=== PATIENT | female | born 1965 | race Caucasian/White ===

== ENCOUNTER 2020-07-23 21:00 | Inpatient (IN) | payer OTHER ==
[2020-07-23 22:27] LABS: #Monocytes 0.4 10x3/uL (0.0-1.1); #Neutrophils 2.8 10x3/uL (1.5-8.4); %Basophils 0.2 % (0.0-2.0); %Eosinophils 0.5 % (0.0-6.0); %Lymphocytes 23.8 % (18.0-47.0); %Monocytes 9.5 % (0.0-10.0); %Neutrophils 65.5 % (40.0-75.0); Hemoglobin 10.2 g/dL (12.0-15.5); Mean Corpuscular HGB CONC 33.7 g/dL (32.0-36.0); Mean Corpuscular Hemoglobin 31.6 pg (27.0-33.0); Mean Corpuscular Volume 93.8 fl (81.6-98.3); Platelet Count 234 10x3/uL (150-450); RBC Distribution Width 16.4 % (11.5-14.5); Red Blood Cell (RBC) Count 3.23 10x6/uL (3.90-5.03); White Blood Cell (WBC) Count 4.3 10x3/uL (3.5-10.5)
[2020-07-23] MEDS ORDERED: Ondansetron PF 4 MG/2 ML Vial ONE (22:31)
[2020-07-23 22:43] LABS: ALT (SGPT) 18 U/L (8-55); AST (SGOT) 52 U/L (5-34); Albumin 2.5 g/dL (3.5-5.0); Alkaline Phosphatase 73 U/L (40-110); Anion Gap 9 mmol/L (10-20); BUN (Urea Nitrogen) 9 mg/dL (9.8-20.1); Bilirubin, Total 0.3 mg/dL (0.2-1.2); Calc. Creatinine Clearance 0 mL/min (70-130); Calcium 8.1 mg/dL (7.8-10.44); Carbon Dioxide 29 mmol/L (22-29); Chloride 99 mmol/L (98-107); Globulin 2.9 g/dL (2.4-3.5); Glucose 102 mg/dL (70-105); Lipase 7 U/L (8-78); Protein, Total 5.4 g/dL (6.0-8.3); Sodium 134 mmol/L (136-145)
[2020-07-23 22:48] LABS: Potassium 2.8 mmol/L (3.5-5.1)
[2020-07-23 22:57] LABS: Bilirubin Neg (Negative); Blood, Urine Negative (Negative); Glucose, Urine (Dipstick) Normal (Negative); Ketone, Urine Negative (Negative); Leukocyte 25 (Negative); Nitrite Negative (Negative); Protein, Urine (Dipstick) 15 mg/dl (Neg-Trace); Specific Gravity, Urine 1.015 (1.002-1.036)
[2020-07-23 22:59] LABS: Clarity Hazy (Clear)
[2020-07-23 23:08] LABS: Bacteria/HPF 2+ HPF (None Seen); Calcium Oxalate Crystals Rare HPF (None Seen); Mucous/LPF 2+ LPF (<2+); RBC/HPF None Seen HPF (0-3); WBC/HPF 0-3 HPF (0-3)
[2020-07-23] MEDS ORDERED: Potassium Chloride 20 MEQ TAB ONE (23:11)
[2020-07-23] MEDS ORDERED: Morphine 4 MG/ML VIAL ONE (23:16)
[2020-07-23] MEDS ORDERED: D5 0.9% NS w/ 20 mEq KCl 1,000 ML IV SCH (23:45)
[2020-07-24] MEDS ORDERED: Ondansetron PF 4 MG/2 ML Vial IVP PRN (01:09)
[2020-07-24] MEDS ORDERED: Ondansetron ODT 4 MG TAB PO PRN (01:09)
[2020-07-24] MEDS ORDERED: Sodium Chloride 0.9% 500 ML IV SCH (04:45)
[2020-07-24] MEDS ORDERED: Magnesium Sulfate 1 GM/2 ML VIAL IM SCH (05:15)
[2020-07-24] MEDS ORDERED: Morphine 2 MG/ML VIAL SLOW IVP SCH (06:15)
[2020-07-24 06:39] VITALS: BMI 21.9
[2020-07-24] MEDS: D5 0.9% NS w/ 20 mEq KCl 1,000 ML IV SCH ×3 (06:45→21:00)
[2020-07-24 07:11] LABS: Anion Gap 8 mmol/L (10-20); BUN (Urea Nitrogen) 6 mg/dL (9.8-20.1); Calc. Creatinine Clearance 121 mL/min (70-130); Calcium 7.7 mg/dL (7.8-10.44); Carbon Dioxide 27 mmol/L (22-29); Chloride 106 mmol/L (98-107); Glucose 93 mg/dL (70-105); Potassium 3.4 mmol/L (3.5-5.1); Sodium 138 mmol/L (136-145)
[2020-07-24 07:39] LABS: PTT 30.2 sec (22.0-33.0)
[2020-07-24 07:47] LABS: Band 2 % (5-11); Eosinophils 1 % (0-10); Hemoglobin 9.4 g/dL (12.0-15.5); Lymphocytes 25 % (21-51); MDiff Complete? YES; Mean Corpuscular Hemoglobin 31.3 pg (27.0-33.0); Mean Platelet Volume 11.4 fl (7.4-10.4); Monocytes 8 % (0-10); Neutrophil 64 % (42-75); Nucleated RBC 1 % (0); Platelet Count 223 10x3/uL (150-450); RBC Distribution Width 16.9 % (11.5-14.5); White Blood Cell (WBC) Count 3.4 10x3/uL (3.5-10.5)
[2020-07-24] MEDS ORDERED: Potassium Chloride 20 MEQ TAB PO SCH ×2 (08:00→23:00)
[2020-07-24] MEDS: Pancrelipase DR 12,000 1 CAP PO SCH ×3 (08:44→16:32)
[2020-07-24] MEDS: Enoxaparin Sodium 60 MG/0.6 ML SYRINGE SC SCH ×2 (08:45→22:53)
[2020-07-24 13:36] LABS: SARS-CoV-2 PCR by NAA Not Detected (NotDetected)
[2020-07-24] MEDS: HYDROcodone/Acetaminophen 7.5/325 mg Tablet PO PRN (17:01)
[2020-07-24] MEDS: metroNIDAZOLE 500 MG in Premix Bag 1 BAG IVPB SCH (17:02)
[2020-07-24] MEDS: Vancomycin HCl 25 MG/ML Oral PO SCH ×2 (17:02→23:17)
[2020-07-24] MEDS ORDERED: Mag-Al Plus 1200 MG/1200 MG/120 MG/30 ML UDCUP PO PRN (21:34)
[2020-07-24] MEDS ORDERED: metroNIDAZOLE 500 MG in Premix Bag 1 BAG IVPB SCH (22:00)
[2020-07-24] MEDS ORDERED: Melatonin 3 MG TAB PO PRN (22:51)
[2020-07-25] MEDS: metroNIDAZOLE 500 MG in Premix Bag 1 BAG IVPB SCH ×3 (01:54→17:13)
[2020-07-25] MEDS: D5 0.9% NS w/ 20 mEq KCl 1,000 ML IV SCH ×2 (03:56→13:50)
[2020-07-25] MEDS: Vancomycin HCl 25 MG/ML Oral PO SCH ×4 (07:15→22:31)
[2020-07-25 09:41] LABS: #Monocytes 0.5 10x3/uL (0.0-1.1); #Neutrophils 2.5 10x3/uL (1.5-8.4); %Basophils 0.2 % (0.0-2.0); %Eosinophils 0.7 % (0.0-6.0); %Lymphocytes 27.9 % (18.0-47.0); %Monocytes 12.2 % (0.0-10.0); %Neutrophils 58.5 % (40.0-75.0); Hemoglobin 11.8 g/dL (12.0-15.5); Mean Corpuscular HGB CONC 32.6 g/dL (32.0-36.0); Mean Corpuscular Volume 98.1 fl (81.6-98.3); Platelet Count 287 10x3/uL (150-450); RBC Distribution Width 17.2 % (11.5-14.5); Red Blood Cell (RBC) Count 3.69 10x6/uL (3.90-5.03); White Blood Cell (WBC) Count 4.3 10x3/uL (3.5-10.5)
[2020-07-25] MEDS: Enoxaparin Sodium 60 MG/0.6 ML SYRINGE SC SCH ×2 (10:05→22:31)
[2020-07-25] MEDS: Pancrelipase DR 12,000 1 CAP PO SCH ×3 (10:53→17:13)
[2020-07-25 11:48] LABS: Anion Gap 15 mmol/L (10-20)
[2020-07-25 11:58] LABS: BUN (Urea Nitrogen) 5 mg/dL (9.8-20.1); Calc. Creatinine Clearance 112 mL/min (70-130); Calcium 8.2 mg/dL (7.8-10.44); Carbon Dioxide 16 mmol/L (22-29); Chloride 108 mmol/L (98-107); Glucose 138 mg/dL (70-105); Potassium 6.2 mmol/L (3.5-5.1); Sodium 133 mmol/L (136-145)
[2020-07-25] MEDS: HYDROcodone/Acetaminophen 7.5/325 mg Tablet PO PRN (12:21)
[2020-07-25] MEDS ORDERED: Sodium Chloride 0.9% 1,000 ML IV SCH (17:30)
[2020-07-25 21:47] LABS: Potassium 4.2 mmol/L (3.5-5.1)
[2020-07-26] MEDS: metroNIDAZOLE 500 MG in Premix Bag 1 BAG IVPB SCH ×2 (00:38→08:31)
[2020-07-26] MEDS: Vancomycin HCl 25 MG/ML Oral PO SCH ×2 (05:39→11:50)
[2020-07-26] MEDS: Enoxaparin Sodium 60 MG/0.6 ML SYRINGE SC SCH (08:31)
[2020-07-26] MEDS: Pancrelipase DR 12,000 1 CAP PO SCH (08:32)
[2020-07-26 08:38] VITALS: BP 99/67; TEMP 98.2
[2020-07-26 08:40] LABS: #Monocytes 0.5 10x3/uL (0.0-1.1); #Neutrophils 1.4 10x3/uL (1.5-8.4); %Eosinophils 1.3 % (0.0-6.0); %Lymphocytes 37.9 % (18.0-47.0); %Neutrophils 45.2 % (40.0-75.0); Hemoglobin 10.9 g/dL (12.0-15.5); Mean Corpuscular HGB CONC 32.9 g/dL (32.0-36.0); Mean Corpuscular Hemoglobin 31.7 pg (27.0-33.0); Mean Corpuscular Volume 96.2 fl (81.6-98.3); Mean Platelet Volume 11.3 fl (7.4-10.4); Platelet Count 279 10x3/uL (150-450); RBC Distribution Width 17.2 % (11.5-14.5); Red Blood Cell (RBC) Count 3.44 10x6/uL (3.90-5.03); White Blood Cell (WBC) Count 3.1 10x3/uL (3.5-10.5)
[2020-07-26 08:55] LABS: ALT (SGPT) 14 U/L (8-55); AST (SGOT) 25 U/L (5-34); Albumin 2.4 g/dL (3.5-5.0); Alkaline Phosphatase 64 U/L (40-110); Anion Gap 11 mmol/L (10-20); BUN (Urea Nitrogen) 4 mg/dL (9.8-20.1); Bilirubin, Total 0.2 mg/dL (0.2-1.2); Calc. Creatinine Clearance 106 mL/min (70-130); Calcium 8.3 mg/dL (7.8-10.44); Carbon Dioxide 24 mmol/L (22-29); Chloride 105 mmol/L (98-107); Globulin 2.8 g/dL (2.4-3.5); Glucose 96 mg/dL (70-105); Potassium 4.2 mmol/L (3.5-5.1); Protein, Total 5.2 g/dL (6.0-8.3); Sodium 136 mmol/L (136-145)
== END 2020-07-26 11:55 | disposition home or self-care (01) | DRG 372 ==
LOC: CSHERS 21:00 → CSHTELE 07-24 00:55 → OBSVTOIN 07-25 15:00
PROVIDERS: ADMIT Family Medicine; ATTEND Family Medicine
DX: A04.72 Enterocolitis due to Clostridium difficile, not specified as recurrent (principal); C25.9 Malignant neoplasm of pancreas, unspecified; D84.9 Immunodeficiency, unspecified; E87.1 Hypo-osmolality and hyponatremia; E46 Unspecified protein-calorie malnutrition; E86.0 Dehydration; E87.6 Hypokalemia; Z20.822 Contact with and (suspected) exposure to COVID-19; Z88.0 Allergy status to penicillin; Z88.2 Allergy status to sulfonamides; Z86.711 Personal history of pulmonary embolism; Z79.01 Long term (current) use of anticoagulants; K64.9 Unspecified hemorrhoids; E86.1 Hypovolemia; E87.5 Hyperkalemia; Z68.21 Body mass index [BMI] 21.0-21.9, adult
CPT/HCPCS: 36416; 80048; 80053; 81003; 81015; 82274; 83605; 83630; 83690; 83735; 85007; 85025; 85027; 85610; 85730; 87045; 87046; 87077; 87186; 87324; 87427; 87449; 87635; 96365; 96372; 96374; 96375; 96376; G0378; J0500; J1642; J1650; J2270; J2405; J3475; J3480; U0003; U0005

== ENCOUNTER 2020-08-02 19:21 | Inpatient (IN) | payer OTHER ==
[2020-08-02] MEDS ORDERED: Acetaminophen 500 MG TAB ONE (19:57)
[2020-08-02] MEDS ORDERED: Morphine 4 MG/ML VIAL ONE (21:20)
[2020-08-02] MEDS ORDERED: Ondansetron PF 4 MG/2 ML Vial IVP PRN (22:05)
[2020-08-02] MEDS ORDERED: Morphine 2 MG/ML VIAL SLOW IVP PRN (22:39)
[2020-08-02] MEDS ORDERED: Vancomycin HCl 25 MG/ML Oral PO SCH (22:45)
[2020-08-03 03:58] LABS: Carbon Dioxide 26 mmol/L (22-29); Chloride 96 mmol/L (98-107); Potassium 3.7 mmol/L (3.5-5.1); Sodium 133 mmol/L (136-145)
[2020-08-03 03:59] LABS: Albumin 3.1 g/dL (3.5-5.0); BUN (Urea Nitrogen) 5 mg/dL (9.8-20.1); Bilirubin, Total 0.5 mg/dL (0.2-1.2); Calc. Creatinine Clearance 0 mL/min (70-130); Calcium 9.4 mg/dL (7.8-10.44); Globulin 3.5 g/dL (2.4-3.5); Glucose 113 mg/dL (70-105); Protein, Total 6.6 g/dL (6.0-8.3)
[2020-08-03 04:00] LABS: ALT (SGPT) 22 U/L (8-55); AST (SGOT) 43 U/L (5-34); Alkaline Phosphatase 107 U/L (40-110)
[2020-08-03 04:01] LABS: Lipase Less than 4 U/L (8-78); Magnesium 2.1 mg/dL (1.6-2.6)
[2020-08-03 04:03] LABS: Anion Gap 15 mmol/L (10-20)
[2020-08-03 04:54] LABS: ALT (SGPT) 16 U/L (8-55); AST (SGOT) 34 U/L (5-34); Albumin 2.6 g/dL (3.5-5.0); Alkaline Phosphatase 95 U/L (40-110); Anion Gap 13 mmol/L (10-20); BUN (Urea Nitrogen) 5 mg/dL (9.8-20.1); Bilirubin, Total 0.4 mg/dL (0.2-1.2); Calc. Creatinine Clearance 0 mL/min (70-130); Carbon Dioxide 23 mmol/L (22-29); Chloride 100 mmol/L (98-107); Globulin 2.9 g/dL (2.4-3.5); Glucose 89 mg/dL (70-105); Potassium 3.7 mmol/L (3.5-5.1); Protein, Total 5.5 g/dL (6.0-8.3); Sodium 132 mmol/L (136-145)
[2020-08-03 05:00] LABS: #Eosinphils 0.1 10x3/uL (0.0-0.5); #Monocytes 0.8 10x3/uL (0.0-1.1); #Neutrophils 3.6 10x3/uL (1.5-8.4); %Basophils 0.7 % (0.0-2.0); %Eosinophils 2.5 % (0.0-6.0); %Lymphocytes 18.5 % (18.0-47.0); %Monocytes 13.6 % (0.0-10.0); %Neutrophils 64.3 % (40.0-75.0); Hemoglobin 11.5 g/dL (12.0-15.5); Mean Corpuscular HGB CONC 33.3 g/dL (32.0-36.0); Mean Corpuscular Hemoglobin 32.1 pg (27.0-33.0); Mean Corpuscular Volume 96.4 fl (81.6-98.3); Mean Platelet Volume 10.3 fl (7.4-10.4); Platelet Count 386 10x3/uL (150-450); RBC Distribution Width 18.4 % (11.5-14.5); Red Blood Cell (RBC) Count 3.58 10x6/uL (3.90-5.03); White Blood Cell (WBC) Count 5.6 10x3/uL (3.5-10.5)
[2020-08-03] MEDS ORDERED: Enoxaparin Sodium 60 MG/0.6 ML SYRINGE SC SCH (05:45)
[2020-08-03] MEDS ORDERED: metroNIDAZOLE 500 MG/100 ML BAG ONE (06:01)
[2020-08-03] MEDS: NS 0.9% w/ 20 MEQ KCL 1,000 ML/1,000 ML BAG IV SCH ×3 (06:09→19:47)
[2020-08-03] MEDS: metroNIDAZOLE 500 MG in Premix Bag 1 BAG IVPB SCH ×3 (06:10→18:29)
[2020-08-03 08:43] LABS: #Eosinphils 0.1 10x3/uL (0.0-0.5); #Monocytes 0.8 10x3/uL (0.0-1.1); #Neutrophils 3.7 10x3/uL (1.5-8.4); %Basophils 0.5 % (0.0-2.0); %Eosinophils 1.3 % (0.0-6.0); %Lymphocytes 23.8 % (18.0-47.0); %Monocytes 13.5 % (0.0-10.0); %Neutrophils 60.7 % (40.0-75.0); Hemoglobin 12.8 g/dL (12.0-15.5); Mean Corpuscular HGB CONC 33.9 g/dL (32.0-36.0); Mean Corpuscular Hemoglobin 32.3 pg (27.0-33.0); Mean Corpuscular Volume 95.5 fl (81.6-98.3); Platelet Count 491 10x3/uL (150-450); RBC Distribution Width 18.2 % (11.5-14.5); Red Blood Cell (RBC) Count 3.96 10x6/uL (3.90-5.03); White Blood Cell (WBC) Count 6.1 10x3/uL (3.5-10.5)
[2020-08-03] MEDS ORDERED: Prevnar 13-Val Conj/PF 0.5 ML SYRINGE IM ONE (09:00)
[2020-08-03] MEDS ORDERED: Vancomycin HCl 25 MG/ML Oral PO SCH (09:00)
[2020-08-03] MEDS: Famotidine/PF 20 mg/2ml Vial SLOW IVP SCH ×2 (10:20→19:46)
[2020-08-03] MEDS: Morphine 4 MG/ML VIAL SLOW IVP PRN (19:45)
[2020-08-03] MEDS: Enoxaparin Sodium 60 MG/0.6 ML SYRINGE SC SCH (19:47)
[2020-08-03] MEDS ORDERED: Fentanyl 100 MCG/2 ML VIAL SLOW IVP SCH (23:45)
[2020-08-04] MEDS: metroNIDAZOLE 500 MG in Premix Bag 1 BAG IVPB SCH ×3 (02:07→17:54)
[2020-08-04] MEDS: Morphine 4 MG/ML VIAL SLOW IVP PRN ×3 (03:35→21:41)
[2020-08-04 04:13] LABS: #Eosinphils 0.1 10x3/uL (0.0-0.5); #Monocytes 0.5 10x3/uL (0.0-1.1); #Neutrophils 2.6 10x3/uL (1.5-8.4); %Basophils 0.9 % (0.0-2.0); %Lymphocytes 25.9 % (18.0-47.0); %Monocytes 12.2 % (0.0-10.0); %Neutrophils 58.8 % (40.0-75.0); Hemoglobin 11.3 g/dL (12.0-15.5); Mean Corpuscular HGB CONC 32.7 g/dL (32.0-36.0); Mean Platelet Volume 10.4 fl (7.4-10.4); Platelet Count 393 10x3/uL (150-450); RBC Distribution Width 18.6 % (11.5-14.5); Red Blood Cell (RBC) Count 3.53 10x6/uL (3.90-5.03); White Blood Cell (WBC) Count 4.4 10x3/uL (3.5-10.5)
[2020-08-04 04:31] LABS: Anion Gap 17 mmol/L (10-20); BUN (Urea Nitrogen) 5 mg/dL (9.8-20.1); Calc. Creatinine Clearance 113 mL/min (70-130); Calcium 8.5 mg/dL (7.8-10.44); Carbon Dioxide 21 mmol/L (22-29); Chloride 101 mmol/L (98-107); Glucose 67 mg/dL (70-105); Potassium 4.7 mmol/L (3.5-5.1); Sodium 134 mmol/L (136-145)
[2020-08-04] MEDS: Enoxaparin Sodium 60 MG/0.6 ML SYRINGE SC SCH ×2 (07:53→21:41)
[2020-08-04] MEDS: Famotidine/PF 20 mg/2ml Vial SLOW IVP SCH ×2 (07:54→21:41)
[2020-08-04] MEDS: NS 0.9% w/ 20 MEQ KCL 1,000 ML/1,000 ML BAG IV SCH (16:02)
[2020-08-05] MEDS: metroNIDAZOLE 500 MG in Premix Bag 1 BAG IVPB SCH ×3 (02:18→17:52)
[2020-08-05] MEDS: Morphine 4 MG/ML VIAL SLOW IVP PRN ×2 (02:47→12:13)
[2020-08-05 04:55] LABS: #Eosinphils 0.1 10x3/uL (0.0-0.5); #Monocytes 0.7 10x3/uL (0.0-1.1); #Neutrophils 3.3 10x3/uL (1.5-8.4); %Basophils 0.2 % (0.0-2.0); %Eosinophils 1.8 % (0.0-6.0); %Lymphocytes 19.5 % (18.0-47.0); %Neutrophils 64.3 % (40.0-75.0); Hemoglobin 10.9 g/dL (12.0-15.5); Mean Corpuscular HGB CONC 33.2 g/dL (32.0-36.0); Mean Corpuscular Hemoglobin 32.2 pg (27.0-33.0); Mean Corpuscular Volume 96.8 fl (81.6-98.3); Mean Platelet Volume 10.8 fl (7.4-10.4); Platelet Count 410 10x3/uL (150-450); RBC Distribution Width 18.2 % (11.5-14.5); Red Blood Cell (RBC) Count 3.39 10x6/uL (3.90-5.03); White Blood Cell (WBC) Count 5.1 10x3/uL (3.5-10.5)
[2020-08-05 05:05] LABS: Anion Gap 15 mmol/L (10-20); BUN (Urea Nitrogen) 4 mg/dL (9.8-20.1); Calc. Creatinine Clearance 118 mL/min (70-130); Calcium 8.2 mg/dL (7.8-10.44); Carbon Dioxide 23 mmol/L (22-29); Chloride 101 mmol/L (98-107); Glucose 88 mg/dL (70-105); Sodium 135 mmol/L (136-145)
[2020-08-05 09:06] LABS: SARS-CoV-2 NAA Rapid Test Not Detected (NotDetected)
[2020-08-05] MEDS ORDERED: EPINEPHrine 1 MG/ML AMP ONE (09:30)
[2020-08-05] MEDS ORDERED: Bupivacaine PF 0.5% 30 ML VIAL ONE (09:30)
[2020-08-05] MEDS ORDERED: SUGAMMADEX SODIUM 500 MG/5 ML VIAL ONE (09:38)
[2020-08-05] MEDS ORDERED: Midazolam HCl 2 mg/2 ml Vial ONE (09:42)
[2020-08-05] MEDS ORDERED: Dexamethasone 20 MG/5 ML VIAL ONE (09:42)
[2020-08-05] MEDS ORDERED: PROPOFOL 20 ML ONE (09:42)
[2020-08-05] MEDS ORDERED: Rocuronium Bromide 10 MG/ML (10ML VIAL) ONE (09:42)
[2020-08-05] MEDS ORDERED: Fentanyl 100 MCG/2 ML VIAL ONE ×2 (09:42→11:08)
[2020-08-05] MEDS ORDERED: Ondansetron PF 4 MG/2 ML Vial ONE (09:42)
[2020-08-05] MEDS ORDERED: Lidocaine 1% PF 5 ML VIAL ONE (09:42)
[2020-08-05] MEDS: Famotidine/PF 20 mg/2ml Vial SLOW IVP SCH ×2 (12:13→21:39)
[2020-08-05] MEDS: Enoxaparin Sodium 60 MG/0.6 ML SYRINGE SC SCH ×2 (12:23→21:42)
[2020-08-05] MEDS: NS 0.9% w/ 20 MEQ KCL 1,000 ML/1,000 ML BAG IV SCH ×2 (12:29→17:49)
[2020-08-05] MEDS ORDERED: Acetaminophen 325 MG TAB PO PRN (18:18)
[2020-08-05] MEDS ORDERED: Morphine 4 MG/ML VIAL SLOW IVP PRN (18:19)
[2020-08-05] MEDS ORDERED: Morphine 2 MG/ML VIAL SLOW IVP PRN (18:19)
[2020-08-06] MEDS: metroNIDAZOLE 500 MG in Premix Bag 1 BAG IVPB SCH ×2 (02:17→10:38)
[2020-08-06] MEDS: NS 0.9% w/ 20 MEQ KCL 1,000 ML/1,000 ML BAG IV SCH (06:08)
[2020-08-06] MEDS: Enoxaparin Sodium 60 MG/0.6 ML SYRINGE SC SCH (08:25)
[2020-08-06] MEDS: Famotidine/PF 20 mg/2ml Vial SLOW IVP SCH (08:26)
[2020-08-06 15:48] VITALS: BP 94/62; TEMP 97.5
== END 2020-08-06 16:10 | disposition home or self-care (01) | DRG 421 ==
LOC: CSHERS 19:21 → CSHTELE 22:05
PROVIDERS: ADMIT Student in an Organized Health Care Education/Training Program; ATTEND Family Medicine
PROC: 0W9G40Z Drainage of Peritoneal Cavity with Drainage Device, Percutaneous Endoscopic Approach (ICD-10-PCS; principal; 2020-08-05)
DX: C25.9 Malignant neoplasm of pancreas, unspecified (principal); R18.0 Malignant ascites; K56.609 Unspecified intestinal obstruction, unspecified as to partial versus complete obstruction; A04.72 Enterocolitis due to Clostridium difficile, not specified as recurrent; D84.9 Immunodeficiency, unspecified; C78.00 Secondary malignant neoplasm of unspecified lung; E46 Unspecified protein-calorie malnutrition; R73.9 Hyperglycemia, unspecified; N18.2 Chronic kidney disease, stage 2 (mild); Z93.1 Gastrostomy status; Z86.711 Personal history of pulmonary embolism; Z68.24 Body mass index [BMI] 24.0-24.9, adult; Z88.0 Allergy status to penicillin; Z88.2 Allergy status to sulfonamides; Z20.822 Contact with and (suspected) exposure to COVID-19
CPT/HCPCS: 36415; 74177; 80048; 80053; 83605; 83690; 83735; 84134; 85025; 88112; 88305; 93970; 96374; J0171; J1100; J1650; J2250; J2270; J2405; J2704; J3010; J3480; J3490; S0020; S0028; U0002

== ENCOUNTER 2020-08-12 19:25 | Inpatient (IN) | payer OTHER ==
[2020-08-12 21:27] LABS: Hemoglobin 10.7 g/dL (12.0-15.5); Mean Corpuscular HGB CONC 34.5 g/dL (32.0-36.0); Mean Corpuscular Hemoglobin 32.2 pg (27.0-33.0); Mean Corpuscular Volume 93.4 fl (81.6-98.3); Mean Platelet Volume 11.1 fl (7.4-10.4); Platelet Count 225 10x3/uL (150-450); RBC Distribution Width 17.6 % (11.5-14.5); Red Blood Cell (RBC) Count 3.32 10x6/uL (3.90-5.03); White Blood Cell (WBC) Count 17.8 10x3/uL (3.5-10.5)
[2020-08-12 21:37] LABS: ALT (SGPT) 10 U/L (8-55); AST (SGOT) 22 U/L (5-34); Albumin 2.4 g/dL (3.5-5.0); Alkaline Phosphatase 82 U/L (40-110); Anion Gap 12 mmol/L (10-20); BUN (Urea Nitrogen) 7 mg/dL (9.8-20.1); Bilirubin, Total 0.8 mg/dL (0.2-1.2); Calc. Creatinine Clearance 0 mL/min (70-130); Calcium 8.1 mg/dL (7.8-10.44); Carbon Dioxide 22 mmol/L (22-29); Chloride 99 mmol/L (98-107); Globulin 2.6 g/dL (2.4-3.5); Glucose 110 mg/dL (70-105); Potassium 3.3 mmol/L (3.5-5.1); Sodium 130 mmol/L (136-145)
[2020-08-12 22:00] LABS: Band 5 % (5-11); Lymphocytes 6 % (21-51)
[2020-08-12 22:01] LABS: Eosinophils 1 % (0-10); Neutrophil 88 % (42-75)
[2020-08-12 22:02] LABS: Anisocytosis MODERATE=16-30 cells (100X) (0-5/hpf); Macrocytosis SLIGHT = 6-15 cells (100X) (0-5/hpf); Microcytosis SLIGHT = 6-15 cells (100X) (0-5/hpf); Poikilocytosis SLIGHT = 6-15 cells (100X) (0-5/hpf)
[2020-08-12 22:04] LABS: Burr Cells SLIGHT = 2-5 cells (100X) (0-1/hpf); Ovalocytes SLIGHT = 2-5 cells (100X) (0-1/hpf); Target Cells SLIGHT = 2-5 cells (100X) (0-1/hpf)
[2020-08-12 22:05] LABS: Platelet Clumps SLIGHT; Platelet Morphology Comment Appears Adequate; Vacuoles MODERATE
[2020-08-12 22:06] LABS: MDiff Complete? YES; Manual Diff?? YES
[2020-08-12] MEDS ORDERED: Cefepime 2 GM VIAL ONE (22:22)
[2020-08-12] MEDS ORDERED: Promethazine HCl 25 MG/ML VIAL ONE (22:51)
[2020-08-12] MEDS ORDERED: Senokot S 8.6-50 MG TAB PO PRN (23:03)
[2020-08-12] MEDS ORDERED: Acetaminophen 325 MG TAB PO PRN (23:03)
[2020-08-12] MEDS ORDERED: HYDROcodone/Acetaminophen 5/325 mg Tablet PO PRN (23:03)
[2020-08-12] MEDS ORDERED: Calcium Carbonate 500 MG ChewTAB PO PRN (23:03)
[2020-08-12] MEDS ORDERED: Promethazine HCl 12.5 MG in Sodium Chloride 0.9% 50 ML IVPB PRN (23:05)
[2020-08-12] MEDS ORDERED: Mag-Al Plus 1200 MG/1200 MG/120 MG/30 ML UDCUP PO PRN (23:07)
[2020-08-12] MEDS ORDERED: Melatonin 3 MG TAB PO PRN (23:07)
[2020-08-12] MEDS ORDERED: Sodium Chloride 0.9% 1,000 ML IV SCH (23:15)
[2020-08-12] MEDS ORDERED: Potassium Chloride 20 MEQ TAB PO SCH (23:15)
[2020-08-12] MEDS ORDERED: Morphine 2 MG/ML VIAL SLOW IVP PRN (23:16)
[2020-08-13 01:20] VITALS: BMI 23.1
[2020-08-13] MEDS: Morphine 4 MG/ML VIAL SLOW IVP PRN ×3 (01:45→20:45)
[2020-08-13] MEDS: Zolpidem Tartrate 5 MG TAB PO PRN ×2 (01:46→20:45)
[2020-08-13 06:52] LABS: Hemoglobin 9.9 g/dL (12.0-15.5); Mean Corpuscular HGB CONC 34.1 g/dL (32.0-36.0); Mean Corpuscular Hemoglobin 31.3 pg (27.0-33.0); Mean Corpuscular Volume 91.8 fl (81.6-98.3); Mean Platelet Volume 11.1 fl (7.4-10.4); Platelet Count 211 10x3/uL (150-450); RBC Distribution Width 17.7 % (11.5-14.5); Red Blood Cell (RBC) Count 3.16 10x6/uL (3.90-5.03); White Blood Cell (WBC) Count 13.7 10x3/uL (3.5-10.5)
[2020-08-13 07:00] LABS: Anion Gap 11 mmol/L (10-20); BUN (Urea Nitrogen) 7 mg/dL (9.8-20.1); Calc. Creatinine Clearance 105 mL/min (70-130); Calcium 8.1 mg/dL (7.8-10.44); Carbon Dioxide 24 mmol/L (22-29); Chloride 102 mmol/L (98-107); Glucose 101 mg/dL (70-105); Potassium 3.5 mmol/L (3.5-5.1); Sodium 133 mmol/L (136-145)
[2020-08-13 07:10] LABS: Band 6 % (5-11); Lymphocytes 6 % (21-51); Monocytes 1 % (0-10); Neutrophil 87 % (42-75)
[2020-08-13 07:12] LABS: Anisocytosis SLIGHT = 6-15 cells (100X) (0-5/hpf); Microcytosis SLIGHT = 6-15 cells (100X) (0-5/hpf); Ovalocytes SLIGHT = 2-5 cells (100X) (0-1/hpf); Poikilocytosis SLIGHT = 6-15 cells (100X) (0-5/hpf); Target Cells SLIGHT = 2-5 cells (100X) (0-1/hpf)
[2020-08-13 07:13] LABS: Large Platelets SLIGHT; Macrocytosis SLIGHT = 6-15 cells (100X) (0-5/hpf)
[2020-08-13 07:14] LABS: MDiff Complete? YES; Manual Diff?? YES; Platelet Morphology Comment Appears Adequate
[2020-08-13] MEDS ORDERED: Vancomycin HCl 1 GM in Sodium Chloride 0.9% 250 ML 250 ML IVPB SCH (10:00)
[2020-08-13] MEDS: Cefepime 1 GM in Sodium Chloride 0.9% 100 ML IVPB SCH ×2 (11:36→20:46)
[2020-08-13] MEDS: Saccharomyces boulardii 250 MG CAP PO SCH (11:40)
[2020-08-13] MEDS: Famotidine/PF 20 mg/2ml Vial SLOW IVP SCH ×2 (11:40→20:45)
[2020-08-13] MEDS: Enoxaparin Sodium 60 MG/0.6 ML SYRINGE SC SCH ×2 (11:41→20:45)
[2020-08-13] MEDS: Pancrelipase DR 12,000 1 CAP PO SCH ×4 (13:47→17:15)
[2020-08-13] MEDS: Vancomycin HCl 1 GM in Sodium Chloride 0.9% 250 ML 250 ML IVPB SCH (14:43)
[2020-08-14] MEDS: Vancomycin HCl 1 GM in Sodium Chloride 0.9% 250 ML 250 ML IVPB SCH ×2 (00:01→13:20)
[2020-08-14 06:41] LABS: BUN (Urea Nitrogen) 6 mg/dL (9.8-20.1); Calc. Creatinine Clearance 103 mL/min (70-130)
[2020-08-14] MEDS: Cefepime 1 GM in Sodium Chloride 0.9% 100 ML IVPB SCH (09:20)
[2020-08-14] MEDS: Enoxaparin Sodium 60 MG/0.6 ML SYRINGE SC SCH (09:30)
[2020-08-14] MEDS: Famotidine/PF 20 mg/2ml Vial SLOW IVP SCH (09:31)
[2020-08-14] MEDS: Pancrelipase DR 12,000 1 CAP PO SCH ×3 (09:31→12:12)
[2020-08-14] MEDS: Saccharomyces boulardii 250 MG CAP PO SCH (09:31)
[2020-08-14 12:00] VITALS: BP 98/58; TEMP 98.8
[2020-08-14] MEDS ORDERED: Cyanocobalamin 1000 MCG/ML VIAL IM SCH (12:00)
[2020-08-14] MEDS: Morphine 4 MG/ML VIAL SLOW IVP PRN (12:31)
[2020-08-14 13:07] LABS: Vancomycin, Trough 11.4 ug/mL
== END 2020-08-14 15:49 | disposition home or self-care (01) | DRG 919 ==
LOC: CSHERS 19:25 → CSHTELE 08-13 01:14
PROVIDERS: ADMIT Student in an Organized Health Care Education/Training Program; ATTEND Hospitalist
DX: T85.79XA Infection and inflammatory reaction due to other internal prosthetic devices, implants and grafts, initial encounter (principal); A41.9 Sepsis, unspecified organism; L03.311 Cellulitis of abdominal wall; R18.8 Other ascites; E46 Unspecified protein-calorie malnutrition; C25.9 Malignant neoplasm of pancreas, unspecified; C78.00 Secondary malignant neoplasm of unspecified lung; D84.9 Immunodeficiency, unspecified; K56.600 Partial intestinal obstruction, unspecified as to cause; E88.09 Other disorders of plasma-protein metabolism, not elsewhere classified; Z68.23 Body mass index [BMI] 23.0-23.9, adult; Z88.0 Allergy status to penicillin; Z88.2 Allergy status to sulfonamides; K52.9 Noninfective gastroenteritis and colitis, unspecified; Z86.711 Personal history of pulmonary embolism; E87.6 Hypokalemia
CPT/HCPCS: 36415; 74177; 80048; 80053; 80202; 82565; 83605; 84520; 85025; 87040; 87070; 87205; 96365; 96367; 96375; J0692; J1650; J2270; J2550; J3370; J3420; J3490; J7050; S0028

== ENCOUNTER 2020-09-08 16:02 | Inpatient (IN) | payer OTHER ==
[2020-09-08] MEDS ORDERED: Ondansetron PF 4 MG/2 ML Vial ONE (17:18)
[2020-09-08] MEDS ORDERED: Cefepime 2 GM VIAL ONE (17:18)
[2020-09-08] MEDS ORDERED: Morphine 4 MG/ML VIAL ONE (17:18)
[2020-09-08] MEDS ORDERED: Vancomycin HCl 500 MG VIAL ONE (17:19)
[2020-09-08] MEDS ORDERED: VANCOMYCIN 1.5 GM in Sodium Chloride 0.9% 250 ML 300 ML IVPB SCH (17:30)
[2020-09-08 17:50] LABS: #Eosinphils 0.1 10x3/uL (0.0-0.5); #Neutrophils 6.4 10x3/uL (1.5-8.4); %Basophils 0.2 % (0.0-2.0); %Eosinophils 0.8 % (0.0-6.0); %Lymphocytes 11.7 % (18.0-47.0); %Monocytes 11.3 % (0.0-10.0); %Neutrophils 75.5 % (40.0-75.0); Hemoglobin 10.6 g/dL (12.0-15.5); Mean Corpuscular HGB CONC 34.1 g/dL (32.0-36.0); Mean Corpuscular Hemoglobin 31.2 pg (27.0-33.0); Mean Corpuscular Volume 91.5 fl (81.6-98.3); Mean Platelet Volume 10.6 fl (7.4-10.4); Platelet Count 425 10x3/uL (150-450); RBC Distribution Width 19.8 % (11.5-14.5); White Blood Cell (WBC) Count 8.5 10x3/uL (3.5-10.5)
[2020-09-08 18:01] LABS: ALT (SGPT) 12 U/L (8-55); AST (SGOT) 23 U/L (5-34); Albumin 2.3 g/dL (3.5-5.0); Alkaline Phosphatase 86 U/L (40-110); Anion Gap 14 mmol/L (10-20); BUN (Urea Nitrogen) 6 mg/dL (9.8-20.1); Bilirubin, Total 0.4 mg/dL (0.2-1.2); Calc. Creatinine Clearance 0 mL/min (70-130); Carbon Dioxide 26 mmol/L (22-29); Chloride 98 mmol/L (98-107); Globulin 2.6 g/dL (2.4-3.5); Glucose 89 mg/dL (70-105); Potassium 3.6 mmol/L (3.5-5.1); Protein, Total 4.9 g/dL (6.0-8.3); Sodium 134 mmol/L (136-145)
[2020-09-08 18:47] LABS: Lipase 186 U/L (8-78)
[2020-09-08] MEDS ORDERED: HYDROcodone/Acetaminophen 5/325 mg Tablet PO PRN (20:19)
[2020-09-08] MEDS ORDERED: Senokot S 8.6-50 MG TAB PO PRN (20:19)
[2020-09-08] MEDS ORDERED: Acetaminophen 325 MG TAB PO PRN (20:19)
[2020-09-08] MEDS ORDERED: HYDROcodone/Acetaminophen 5/325 mg Tablet ONE (20:19)
[2020-09-08] MEDS ORDERED: Guaifenesin DM 100-10/5 ML UDCUP PO PRN (20:19)
[2020-09-09 00:34] VITALS: BMI 21.9
[2020-09-09] MEDS: NS 0.9% w/ 20 MEQ KCL 1,000 ML/1,000 ML BAG IV SCH ×3 (00:42→23:53)
[2020-09-09] MEDS: Micafungin 100 MG in Sodium Chloride 0.9% 100 ML IVPB SCH (00:48)
[2020-09-09] MEDS: Famotidine/PF 20 mg/2ml Vial SLOW IVP SCH ×3 (00:48→22:09)
[2020-09-09] MEDS: Ondansetron PF 4 MG/2 ML Vial IVP PRN ×3 (01:06→18:30)
[2020-09-09] MEDS: Morphine 4 MG/ML VIAL SLOW IVP PRN ×3 (01:06→18:30)
[2020-09-09] MEDS: Enoxaparin Sodium 60 MG/0.6 ML SYRINGE SC SCH ×3 (01:06→22:10)
[2020-09-09 06:03] LABS: #Eosinphils 0.1 10x3/uL (0.0-0.5); #Monocytes 1.2 10x3/uL (0.0-1.1); #Neutrophils 7.3 10x3/uL (1.5-8.4); %Basophils 0.3 % (0.0-2.0); %Eosinophils 0.7 % (0.0-6.0); %Lymphocytes 9.5 % (18.0-47.0); %Monocytes 12.3 % (0.0-10.0); %Neutrophils 76.4 % (40.0-75.0); Mean Corpuscular HGB CONC 34.6 g/dL (32.0-36.0); Mean Corpuscular Hemoglobin 31.8 pg (27.0-33.0); Mean Platelet Volume 10.8 fl (7.4-10.4); Platelet Count 392 10x3/uL (150-450); RBC Distribution Width 20.2 % (11.5-14.5); Red Blood Cell (RBC) Count 3.14 10x6/uL (3.90-5.03); White Blood Cell (WBC) Count 9.5 10x3/uL (3.5-10.5)
[2020-09-09 06:14] LABS: ALT (SGPT) 8 U/L (8-55); AST (SGOT) 20 U/L (5-34); Albumin 2.1 g/dL (3.5-5.0); Alkaline Phosphatase 70 U/L (40-110); Anion Gap 14 mmol/L (10-20); BUN (Urea Nitrogen) 5 mg/dL (9.8-20.1); Bilirubin, Total 0.4 mg/dL (0.2-1.2); Calc. Creatinine Clearance 131 mL/min (70-130); Calcium 7.6 mg/dL (7.8-10.44); Carbon Dioxide 22 mmol/L (22-29); Chloride 104 mmol/L (98-107); Globulin 2.4 g/dL (2.4-3.5); Glucose 71 mg/dL (70-105); Potassium 3.7 mmol/L (3.5-5.1); Protein, Total 4.5 g/dL (6.0-8.3); Sodium 136 mmol/L (136-145)
[2020-09-09] MEDS ORDERED: Cefepime 1 GM VIAL ONE (06:46)
[2020-09-09] MEDS: Cefepime 1 GM in Sodium Chloride 0.9% 100 ML IVPB SCH ×2 (06:49→18:30)
[2020-09-09] MEDS: Vancomycin HCl 1 GM in Sodium Chloride 0.9% 250 ML 250 ML IVPB SCH ×2 (10:03→22:09)
[2020-09-09] MEDS ORDERED: Prochlorperazine Edisylate 10 MG in Sodium Chloride 0.9% 50 ML IVPB PRN (10:44)
[2020-09-09 13:57] LABS: SARS-CoV-2 PCR by NAA Not Detected (NotDetected)
[2020-09-09] MEDS: Morphine 2 MG/ML VIAL SLOW IVP PRN (22:49)
[2020-09-10] MEDS: Morphine 2 MG/ML VIAL SLOW IVP PRN (00:41)
[2020-09-10] MEDS: Famotidine/PF 20 mg/2ml Vial SLOW IVP SCH ×2 (00:41→08:37)
[2020-09-10] MEDS: Micafungin 100 MG in Sodium Chloride 0.9% 100 ML IVPB SCH (02:53)
[2020-09-10] MEDS: NS 0.9% w/ 20 MEQ KCL 1,000 ML/1,000 ML BAG IV SCH ×2 (03:59→18:49)
[2020-09-10] MEDS: Cefepime 1 GM in Sodium Chloride 0.9% 100 ML IVPB SCH ×2 (06:08→19:51)
[2020-09-10 08:36] LABS: #Eosinphils 0.1 10x3/uL (0.0-0.5); #Monocytes 0.8 10x3/uL (0.0-1.1); #Neutrophils 4.8 10x3/uL (1.5-8.4); %Basophils 0.5 % (0.0-2.0); %Eosinophils 1.4 % (0.0-6.0); %Lymphocytes 13.1 % (18.0-47.0); %Monocytes 11.8 % (0.0-10.0); %Neutrophils 72.9 % (40.0-75.0); Mean Corpuscular HGB CONC 34.9 g/dL (32.0-36.0); Mean Corpuscular Hemoglobin 32.5 pg (27.0-33.0); Mean Corpuscular Volume 93.2 fl (81.6-98.3); Mean Platelet Volume 10.7 fl (7.4-10.4); Platelet Count 525 10x3/uL (150-450); RBC Distribution Width 20.3 % (11.5-14.5); Red Blood Cell (RBC) Count 3.38 10x6/uL (3.90-5.03); White Blood Cell (WBC) Count 6.5 10x3/uL (3.5-10.5)
[2020-09-10] MEDS: Vancomycin HCl 1 GM in Sodium Chloride 0.9% 250 ML 250 ML IVPB SCH (08:37)
[2020-09-10] MEDS: Enoxaparin Sodium 60 MG/0.6 ML SYRINGE SC SCH ×2 (08:37→23:44)
[2020-09-10 08:49] LABS: Vancomycin, Trough 16.3 ug/mL
[2020-09-10 08:52] LABS: ALT (SGPT) Less than 6 U/L (8-55); AST (SGOT) 15 U/L (5-34); Albumin 2.1 g/dL (3.5-5.0); Alkaline Phosphatase 68 U/L (40-110); Anion Gap 16 mmol/L (10-20); BUN (Urea Nitrogen) 5 mg/dL (9.8-20.1); Bilirubin, Total 0.4 mg/dL (0.2-1.2); Calc. Creatinine Clearance 119 mL/min (70-130); Calcium 7.9 mg/dL (7.8-10.44); Carbon Dioxide 20 mmol/L (22-29); Chloride 103 mmol/L (98-107); Globulin 2.7 g/dL (2.4-3.5); Glucose 69 mg/dL (70-105); Potassium 3.7 mmol/L (3.5-5.1); Protein, Total 4.8 g/dL (6.0-8.3); Sodium 135 mmol/L (136-145)
[2020-09-10] MEDS ORDERED: Lorazepam 1 MG TAB PO SCH (23:30)
[2020-09-11] MEDS: Famotidine/PF 20 mg/2ml Vial SLOW IVP SCH ×3 (00:59→21:35)
[2020-09-11] MEDS: Morphine 2 MG/ML VIAL SLOW IVP PRN ×2 (00:59→21:41)
[2020-09-11] MEDS: Vancomycin HCl 1 GM in Sodium Chloride 0.9% 250 ML 250 ML IVPB SCH (01:00)
[2020-09-11] MEDS: NS 0.9% w/ 20 MEQ KCL 1,000 ML/1,000 ML BAG IV SCH ×2 (02:19→16:30)
[2020-09-11] MEDS: Micafungin 100 MG in Sodium Chloride 0.9% 100 ML IVPB SCH (03:06)
[2020-09-11] MEDS: Cefepime 1 GM in Sodium Chloride 0.9% 100 ML IVPB SCH ×2 (06:35→19:14)
[2020-09-11 06:46] LABS: Hemoglobin 10.5 g/dL (12.0-15.5); Mean Corpuscular HGB CONC 34.5 g/dL (32.0-36.0); Mean Corpuscular Hemoglobin 31.7 pg (27.0-33.0); Mean Corpuscular Volume 91.8 fl (81.6-98.3); Mean Platelet Volume 11.1 fl (7.4-10.4); Platelet Count 483 10x3/uL (150-450); RBC Distribution Width 20.1 % (11.5-14.5); Red Blood Cell (RBC) Count 3.31 10x6/uL (3.90-5.03); White Blood Cell (WBC) Count 5.3 10x3/uL (3.5-10.5)
[2020-09-11 07:04] LABS: Anion Gap 12 mmol/L (10-20); BUN (Urea Nitrogen) 4 mg/dL (9.8-20.1); Calc. Creatinine Clearance 123 mL/min (70-130); Calcium 7.8 mg/dL (7.8-10.44); Carbon Dioxide 23 mmol/L (22-29); Chloride 104 mmol/L (98-107); Glucose 98 mg/dL (70-105); Potassium 3.9 mmol/L (3.5-5.1); Sodium 135 mmol/L (136-145)
[2020-09-11 07:47] LABS: MDiff Complete? YES
[2020-09-11 07:50] LABS: Eosinophils 1 % (0-10); Lymphocytes 9 % (21-51); Monocytes 19 % (0-10); Neutrophil 71 % (42-75)
[2020-09-11 07:51] LABS: Target Cells SLIGHT = 2-5 cells (100X) (0-1/hpf)
[2020-09-11 07:52] LABS: Burr Cells SLIGHT = 2-5 cells (100X) (0-1/hpf); Ovalocytes SLIGHT = 2-5 cells (100X) (0-1/hpf)
[2020-09-11 07:53] LABS: Platelet Morphology Comment Appears Increased
[2020-09-11] MEDS ORDERED: Enoxaparin Sodium 60 MG/0.6 ML SYRINGE ONE (08:49)
[2020-09-11] MEDS: Enoxaparin Sodium 60 MG/0.6 ML SYRINGE SC SCH ×2 (08:51→21:34)
[2020-09-11] MEDS ORDERED: Polyethylene Glycol 3350 17 GM Packet PO PRN (12:28)
[2020-09-11] MEDS ORDERED: Bisacodyl 5 MG TAB PO PRN (12:28)
[2020-09-11] MEDS: Ondansetron PF 4 MG/2 ML Vial IVP PRN (17:26)
[2020-09-11] MEDS: Calcium Carbonate 500 MG ChewTAB PO PRN (19:16)
[2020-09-12] MEDS: Micafungin 100 MG in Sodium Chloride 0.9% 100 ML IVPB SCH (01:06)
[2020-09-12] MEDS: NS 0.9% w/ 20 MEQ KCL 1,000 ML/1,000 ML BAG IV SCH (02:55)
[2020-09-12] MEDS: Cefepime 1 GM in Sodium Chloride 0.9% 100 ML IVPB SCH (07:23)
[2020-09-12] MEDS: Calcium Carbonate 500 MG ChewTAB PO PRN (07:46)
[2020-09-12] MEDS: Enoxaparin Sodium 60 MG/0.6 ML SYRINGE SC SCH (08:40)
[2020-09-12] MEDS: Famotidine/PF 20 mg/2ml Vial SLOW IVP SCH (08:41)
[2020-09-12 12:14] VITALS: BP 109/70; TEMP 97.7
== END 2020-09-12 14:38 | disposition home or self-care (01) | DRG 603 ==
LOC: CSHERS 16:02 → CSHTELE 20:19 → UNDOADMIN 09-09 00:07 → CSHTELE 09-09 00:07
PROVIDERS: ADMIT Student in an Organized Health Care Education/Training Program; ATTEND Family Medicine
DX: L03.311 Cellulitis of abdominal wall (principal); D84.9 Immunodeficiency, unspecified; E44.0 Moderate protein-calorie malnutrition; R18.8 Other ascites; C25.9 Malignant neoplasm of pancreas, unspecified; C78.00 Secondary malignant neoplasm of unspecified lung; C79.89 Secondary malignant neoplasm of other specified sites; K56.690 Other partial intestinal obstruction; Z20.822 Contact with and (suspected) exposure to COVID-19; Z88.0 Allergy status to penicillin; Z88.2 Allergy status to sulfonamides; Z68.21 Body mass index [BMI] 21.0-21.9, adult; Z79.01 Long term (current) use of anticoagulants; Z79.891 Long term (current) use of opiate analgesic; Z79.899 Other long term (current) drug therapy; Z86.711 Personal history of pulmonary embolism; K52.9 Noninfective gastroenteritis and colitis, unspecified; Z93.1 Gastrostomy status; D63.8 Anemia in other chronic diseases classified elsewhere
CPT/HCPCS: 36415; 36416; 71045; 74177; 80048; 80053; 80202; 83605; 83690; 84145; 84484; 85025; 87040; 87103; 87449; 87635; 96365; 96366; 96367; 96375; J0692; J0780; J1650; J2248; J2270; J2405; J3370; J3480; J3490; J7050; S0028; U0003; U0005